=== PATIENT | male | born 1970 ===

== ENCOUNTER 2021-08-13 14:34 | Emergency (ER) | payer BC ==
[2021-08-13] MEDS ORDERED: Orphenadrine 60 MG/2 ML Inj IM ONE (16:57)
[2021-08-13] MEDS ORDERED: HYDROmorphone 1 MG/ML Syringe IM ONE (16:57)
[2021-08-13] MEDS ORDERED: Dexamethasone 10 MG/ML SDV IM STA (16:57)
[2021-08-13] MEDS ORDERED: Ibuprofen 800 MG Tab PO ONE (16:58)
--- NOTE | 2021-08-13 17:00 | EDM.PDOC ---
ED HPI GENERAL MEDICAL PROBLEM - General Chief Complaint: General Stated Complaint: BROKEN NECK NO FEELING IN LFT ARM Time Seen by Provider: 08/13/21 16:52 Source of Information: Reports: Patient History Limitations: Reports: No Limitations - History of Present Illness INITIAL COMMENTS - FREE TEXT/NARRATIVE: 51-year-old male presents for worsening neck pain. Patient notes that he has had pain in the neck for a little over a month. He is following up with a physician who recently ordered an MRI study of his neck. 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 Patient is also noted to have mild impingement of the exiting left C4 nerve root, left C6 nerve root, right C5 nerve root. He is not currently being treated with medications. He has follow-up with neurosurgery in 12 days. He notes that this morning the pain is worsened and he has a numbness tingling sensation to his left upper extremity. This has been going on for about a month but acutely worsened today. He has difficulty moving his neck secondary to pain. Right Neck Pain Score (Numeric/FACES): 8 - Related Data Allergies Allergy/AdvReac Type Severity Reaction Status Date / Time No Known Allergies Allergy Verified 07/18/14 15:48 Home Meds: Home Meds Cyclobenzaprine [Flexeril] 08/13/21 [History] Cyclobenzaprine [Flexeril] 10 mg PO TID PRN #20 tab 08/13/21 [Rx] Ibuprofen [Motrin] 600 mg PO Q6H PRN #30 tab 08/13/21 [Rx] oxyCODONE HCl/Acetaminophen [Percocet 10-325 mg Tablet] 1 each PO Q6H PRN #18 tablet 08/13/21 [Rx] predniSONE 40 mg PO DAILY 5 Days #10 tab 08/13/21 [Rx] ED ROS GENERAL - Review of Systems Review Of Systems: Comprehensive ROS is negative, except as noted in HPI. ED EXAM, GENERAL - Physical Exam Exam: See Below Exam Limited By: No Limitations General Appearance: Alert, WD/WN, No Apparent Distress Ears: Hearing Grossly Normal Throat/Mouth: Normal Voice, No Airway Compromise Head: Atraumatic, Normocephalic Neck: Normal Inspection Respiratory/Chest: No Respiratory Distress, No Accessory Muscle Use Cardiovascular: Normal Peripheral Pulses Extremities: Normal Inspection Neurological: Alert, Normal Cognition, Normal Gait Psychiatric: Normal Affect, Normal Mood Skin Exam: Warm, Dry, Intact, Normal Color Course - Vital Signs Last Recorded V/S: Last Vital Signs Temp 97.4 F 08/13/21 16:53 Pulse 78 08/13/21 16:53 Resp 18 08/13/21 16:53 BP 141/111 H 08/13/21 16:53 Pulse Ox 96 08/13/21 16:53 - Orders/Labs/Meds Meds: Medications Discontinued Medications Generic Name Dose Route Start Last Admin Trade Name Freq PRN Reason Stop Dose Admin Dexamethasone 10 mg 08/13/21 16:57 08/13/21 17:31 Dexamethasone 10 Mg/Ml Sdv IM 08/13/21 16:58 10 mg STAT STA Administration Hydromorphone HCl 1 mg 08/13/21 16:57 08/13/21 17:32 Hydromorphone 1 Mg/Ml Syringe IM 08/13/21 16:58 1 mg ONETIME ONE Administration Ibuprofen 800 mg 08/13/21 16:58 08/13/21 17:31 Ibuprofen 800 Mg Tab PO 08/13/21 16:59 800 mg ONETIME ONE Administration Orphenadrine Citrate 60 mg 08/13/21 16:57 08/13/21 17:33 Orphenadrine 60 Mg/2 Ml Inj IM 08/13/21 16:58 60 mg ONETIME ONE Administration - Re-Assessments/Exams Free Text/Narrative Re-Assessment/Exam: 08/13/21 17:03 We will trial Decadron, Motrin, Dilaudid, Norflex. Will follow up and reassess. 08/13/21 18:09 Patient is feeling much better. Will discharge with prednisone, Percocet, Flexeril Departure - Departure Time of Disposition: 18:09 Disposition: Home, Self-Care 01 Condition: Good Clinical Impression: Cervicalgia - Discharge Information Prescriptions: Cyclobenzaprine [Flexeril] 10 mg PO TID PRN #20 tab PRN Reason: Muscle Spasm - Painful oxyCODONE HCl/Acetaminophen [Percocet 10-325 mg Tablet] 1 each PO Q6H PRN #18 tablet PRN Reason: Pain predniSONE 40 mg PO DAILY 5 Days #10 tab Instructions: Cervical Radiculopathy Referrals: Liam Mcnulty MD [Primary Care Provider] - Forms: ED Department Discharge Additional Instructions: The following information is given to patients seen in the emergency department who are being discharged to home. This information is to outline your options for follow-up care. We provide all patients seen in our emergency department with a follow-up referral. The need for follow-up, as well as the timing and circumstances, are variable depending upon the specifics of your emergency department visit. If you don't have a primary care physician on staff, we will provide you with a referral. We always advise you to contact your personal physician following an emergency department visit to inform them of the circumstance of the visit and for follow-up with them and/or the need for any referrals to a consulting specialist. The emergency department will also refer you to a specialist when appropriate. This referral assures that you have the opportunity for follow-up care with a specialist. All of these measure are taken in an effort to provide you with optimal care, which includes your follow-up. Under all circumstances we always encourage you to contact your private physician who remains a resource for coordinating your care. When calling for follow-up care, please make the office aware that this follow-up is from your recent emergency room visit. If for any reason you are refused follow-up, please contact the [facility] Emergency Department at and asked to speak to the emergency department charge nurse. Please follow up with your primary care physician. If you do not have a primary care physician, see below: [facility] [address] [place] [id number] [facility] [address] [place] [address] [facility] [address] [place] [address] Sepsis Event Note (ED) - Focused Exam Vital Signs: Vital Signs Temp Pulse Resp BP Pulse Ox 08/13/21 16:53 97.4 F 78 18 141/111 H 96
[2021-08-13] MEDS ORDERED: Acetaminophen/oxyCODONE 325-10 MG Tab PO ONE (18:11)
[2021-08-13 18:20] VITALS: BP 142/88; PULSE 75
== END 2021-08-13 18:20 | disposition home or self-care (01) ==
LOC: MW.ED 14:34
DX: M54.2 Cervicalgia (principal)
CPT/HCPCS: 96372; 99283; A9270; J1100; J1170; J2360